=== PATIENT | male | born 1980 | race Two or more races ===

== ENCOUNTER → 2022-10-28 12:52 | Outpatient (BNVA) | payer OTHER, SELFPAY | PROVIDERS: PCP Internal Medicine; Visit Provider Internal Medicine | DX: S86.112A Strain of other muscle(s) and tendon(s) of posterior muscle group at lower leg level, left leg, initial encounter (principal); Y93.67 Activity, basketball | CPT/HCPCS: 99203 ==

== ENCOUNTER → 2022-10-31 08:52 | Outpatient (BNVA) | payer OTHER, SELFPAY | PROVIDERS: PCP Internal Medicine; Visit Provider Internal Medicine | DX: S86.112A Strain of other muscle(s) and tendon(s) of posterior muscle group at lower leg level, left leg, initial encounter (principal); Y93.67 Activity, basketball | CPT/HCPCS: 99213 ==

== ENCOUNTER → 2022-11-03 09:43 | Outpatient (BNVA) | payer OTHER, SELFPAY | PROVIDERS: PCP Internal Medicine; Visit Provider Internal Medicine | DX: S76.312A Strain of muscle, fascia and tendon of the posterior muscle group at thigh level, left thigh, initial encounter (principal); Y93.67 Activity, basketball | CPT/HCPCS: 99213 ==

== ENCOUNTER 2022-11-06 20:03 | Outpatient (REF) | payer OTHER, SELFPAY ==
--- NOTE | ~2022-11-06 | MR_ITS ---
EXAMINATION: MRI LOWER LEG LEFT WITHOUT CONTRAST CLINICAL INFORMATION: 41-year-old male with calf injury. Evaluate for gastrocnemius or plantaris tear. COMPARISON: None TECHNIQUE: Noncontrast MR imaging examination of the left lower extremity is performed on a high-field magnet. Axial, sagittal and coronal T1-weighted, axial and sagittal fat-suppressed T2-weighted and coronal STIR pulse sequences were obtained. FINDINGS: The visualized tibia and fibula are intact. No fracture or periostitis. The bones have normal alignment. Mild edema is present within the medial head of the gastrocnemius. There is visible tearing/disruption of the aponeurosis along the anterior border of the distal medial gastrocnemius with accumulation of fluid at the aponeurotic tear and accumulation of fluid in between the medial gastrocnemius and underlying soleus. On the axial images, the area of greatest degree of aponeurotic tearing measures approximately 2 cm transverse, and minimal proximal retraction of myotendinous junction is visible on coronal images. There is mild tear extension into underlying muscle at the myotendinous junction. No evidence of plantaris or Achilles tendon tear. The other visualized tendons of the extremity are intact. At the ankle, the talar dome is well-positioned within the normal mortise. MR/MR lower leg LT wo con IMPRESSION: There is a moderate grade 2 strain of the medial gastrocnemius.
== END 2022-11-06 20:04 | disposition home or self-care (01) ==
LOC: HO.MRI 20:03
PROVIDERS: PCP Internal Medicine; Visit Provider Internal Medicine
DX: S89.92XA Unspecified injury of left lower leg, initial encounter (principal); M79.662 Pain in left lower leg; X58.XXXA Exposure to other specified factors, initial encounter; Y93.9 Activity, unspecified; Y92.9 Unspecified place or not applicable; Y99.9 Unspecified external cause status
CPT/HCPCS: 73718

== ENCOUNTER → 2022-11-10 08:42 | Outpatient (BNVA) | payer OTHER, SELFPAY | PROVIDERS: PCP Internal Medicine; Visit Provider Internal Medicine | DX: S86.112A Strain of other muscle(s) and tendon(s) of posterior muscle group at lower leg level, left leg, initial encounter (principal); Y93.67 Activity, basketball | CPT/HCPCS: 99214 ==

== ENCOUNTER → 2022-11-24 08:12 | Outpatient (BNVA) | payer OTHER, SELFPAY | PROVIDERS: PCP Internal Medicine; Visit Provider Internal Medicine | DX: S86.112D Strain of other muscle(s) and tendon(s) of posterior muscle group at lower leg level, left leg, subsequent encounter (principal); X50.3XXD Overexertion from repetitive movements, subsequent encounter | CPT/HCPCS: 99213 ==

== ENCOUNTER → 2022-12-02 11:59 | Outpatient (BNVA) | payer OTHER, SELFPAY | PROVIDERS: PCP Internal Medicine; Visit Provider Internal Medicine | DX: S86.112D Strain of other muscle(s) and tendon(s) of posterior muscle group at lower leg level, left leg, subsequent encounter (principal); Y93.67 Activity, basketball | CPT/HCPCS: 99213 ==

== ENCOUNTER 2022-12-05 11:00 | Outpatient (RCR) | payer OTHER, SELFPAY ==
--- NOTE | 2022-11-14 09:32 | MHC.PT.EP ---
[facility] [place] Office [place] Office [place] Office [address] Diane Vidal [address] [phone] F: [phone] F: [phone] F: [phone] F: [phone] Physical Therapy Plan of Care Date of Evaluation: Date of Surgery: NA Diagnosis: L TORN GASTROCNEMIUS APONEUROSIS Assessment: Pt IS 41 YO M REFERRED TO PT FROM (DR DONALD) WITH L TORN CALF MUSCLE. 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 SAW NURSE (HEAT PAD AND IBUPROFEN). A FEW DAYS LATER HIS FOOT WAS SWOLLEN (ELEVATED) WENT BTW ON THURSDAY>NURSE>WC..MRI. HAS BEEN OOW SINCE A FEW DAYS AFTER THE INCIDENT PRESENTS TO PT WITH DECREASED ANKLE ROM AND STRENGTH ON L. NO LIMP AT THIS TIME, SOME TTP PROX AND DISTAL CALF L.SHOULD BENEFIT FROM PT TO ADDRESS THESE ISSUES Frequency and Duration: The patient will be seen 2X/WK X 4 WKS Short Term Goals: 1. INCREASED AWARENESS ANKLE AND LOWER LEG CARE 2. RTW Assisted Goals: 1.INCREASED DF ROM L TO 5 DEGREES 2. DECREASED L GASTROC PAIN AT LEAST 50% WITH ADLS 3. I HEP WITH DC EX PLAN 4. L ANKLE STRENGTH 5/5 T/O 5. IMPROVED LEFI (41/80 AT SOC) Treatment Plan: Modalities to reduce pain, spasms and effusion. Manual therapy to restore motion and function. Therapeutic exercise to improve strength and flexibility. Neuromuscular re-education for posture and balance. Therapeutic activities to return to functional activities of daily living. Electronically signed by: KAVITHA HINTON PT Please sign and return to therapist. Thank you for your referral.
--- NOTE | 2023-01-20 11:31 | MHC.PT.DC ---
[facility] [place] Office [place] Office [place] Office [address] Diane Vidal [address] [phone] F: [phone] F: [phone] F: [phone] F: [phone] Physical Therapy Discharge Report Diagnosis: L TORN GASTROCNEMIUS APONEUROSIS Date of Surgery: NA Date of Evaluation: 11/14/22 Date of Discharge: 01/20/23 Treatments to Date: 7 Cancellations to Date: No Shows to Date: Discharge Status: Patient Elected to Stop Discharge Summary: AT LAST SESSION ON 12/05/22 PER ASSESSMENT Pt HAS HAD INIT EVAL AND 6 FU VISITS WITH WORK ON ROM AND OPEN CHAIN LE STRENGTHENING. SAW WC 3DAYS AGO AND CLEARED FOR RTW ON THURSDAY. IN PT, Pt IS JUST BEGINNING CLOSED CHAIN AND PROPRIOCEPTION WORK AND WOULD BENEFIT FROM CONT PT 2X/WK X 3 MORE WEEKS. HAS SHOWN SMALL AMOUNT OF PROGRESS WITH DF ROM. SOLEUS STRETCH ADDED TO HELP CONTINUE TO IMPROVE THIS RANGE Pt THEN NO SHOWED LAST 2 SCHEDULED APPTS Electronically signed by: KAVITHA HINTON PT Please sign and return to therapist. Thank you for your referral.
== END 2023-01-20 11:33 | disposition home or self-care (01) ==
LOC: HO.PT 11:00
PROVIDERS: Visit Provider Internal Medicine
DX: S86.912D Strain of unspecified muscle(s) and tendon(s) at lower leg level, left leg, subsequent encounter (principal)
CPT/HCPCS: 97110; 97140; 97161; 97530; 97535

== ENCOUNTER → 2025-09-27 10:06 | Outpatient (BNVA) | payer OTHER, SELFPAY | PROVIDERS: PCP Internal Medicine; Visit Provider Emergency Medicine | DX: S50.12XA Contusion of left forearm, initial encounter (principal); W03.XXXA Other fall on same level due to collision with another person, initial encounter | CPT/HCPCS: 73080; 73090; 99203 ==

== ENCOUNTER → 2025-10-04 09:22 | Outpatient (BNVA) | payer OTHER, SELFPAY | PROVIDERS: PCP Internal Medicine; Visit Provider Emergency Medicine | DX: S50.02XA Contusion of left elbow, initial encounter (principal); W03.XXXA Other fall on same level due to collision with another person, initial encounter | CPT/HCPCS: 99213 ==

== ENCOUNTER → 2025-10-10 10:04 | Outpatient (BNVA) | payer OTHER, SELFPAY | PROVIDERS: PCP Internal Medicine; Visit Provider Emergency Medicine | DX: S50.02XA Contusion of left elbow, initial encounter (principal); W03.XXXA Other fall on same level due to collision with another person, initial encounter; Z02.79 Encounter for issue of other medical certificate | CPT/HCPCS: 99213 ==